=== PATIENT | male | born 1955 | race Caucasian/White ===

== ENCOUNTER 2018-11-24 12:41 | Inpatient (IN) | payer MEDICARE, OTHER ==
--- NOTE | 2018-11-24 13:15 | ED ---
Shortness of Breath - HPI Summary HPI Summary: This patient is a 63 year old male brought in to [facility] by EMS with a cc of SOB accompanied by diffuse upper back pain and diffuse CP. The patient was discharged yesterday from [facility] after he had a cardiac ablation for afib. He has had CP since he was discharged. He rates the pain 2/10 in severity. The patient states when he was going home he was so fatigued that he needed to stop and rest several times as he drove home. Since then he has had severe PICKETT and can barely walk. Last night it was worse as he became anxious. He used his CPAP all night with relief. Hx COPD. When he took his CPAP off this morning he was having severe PICKETT, so much so that he was unable to put his pants on. At this time he contacted EMS. He does deny LE edema. - History of Current Complaint Chief Complaint: EDChestPainROMI Time Seen by Provider: 11/24/18 12:51 Hx Obtained From: Patient Onset/Duration: Lasting Days - 2, Still Present Timing: Constant Current Severity: Moderate Dyspnea At: Exertion Alleviating Factors: Oxygen, Other - rest Associated Signs & Symptoms: Chest Pain Unrelated to Cough - Allergy/Home Medications Allergies/Adverse Reactions: Allergies Allergy/AdvReac Type Severity Reaction Status Date / Time Penicillins Allergy Unknown Verified 11/24/18 12:49 Reaction Details tamsulosin [From Flomax] Allergy URINARY Verified 11/24/18 12:49 TRACT INFECTIONS TETANUS Allergy ?? UNSURE Uncoded 11/24/18 12:49 IF ALLERGIC Home Medications: Home Medications Fluticasone NASAL SPRAY 50MCG* [Flonase NASAL SPRAY 50MCG*] 1 spray BOTH NARES BID 11/24/18 [History Confirmed 11/24/18] Magnesium Oxide [Magnesium] 400 mg PO DAILY 11/24/18 [History Confirmed 11/24/18 ] Metoprolol Succinate XL TAB* [Toprol XL TAB*] 25 mg PO BEDTIME 11/24/18 [ History Confirmed 11/24/18] Pantoprazole TAB * [Protonix TAB*] 40 mg PO QAM 11/24/18 [History Confirmed ] PMH/Surg Hx/FS Hx/Imm Hx Cardiovascular History: Reports: Other Cardiovascular Problems/Disorders - ATRIAL FIBRILLATION Denies: Hx Pacemaker/ICD Respiratory History: Reports: Hx Chronic Obstructive Pulmonary Disease (COPD), Hx Sleep Apnea - NO MACHINE GI History: Reports: Hx Gastroesophageal Reflux Disease - PRN TUMS History: Reports: Hx Kidney Infection - HX OF IN THE PAST, Hx Kidney Stones - HX OF IN THE PAST, Other Problems/Disorders Musculoskeletal History: Reports: Hx Arthritis - KNEES, Hx Tendonitis - ELBOWS Sensory History: Reports: Hx Cataracts, Hx Contacts or Glasses - GLASSES, Hx Hearing Aid - LEFT EAR Opthamlomology History: Reports: Hx Cataracts, Hx Contacts or Glasses - GLASSES Neurological History: Reports: Other Neuro Impairments/Disorders - STATES BALANCE IS A LITTLE OFF Psychiatric History: Reports: Hx Depression - AFTER PASSED - Surgical History Surgery Procedure, Year, and Place: LEFT ARM FOR [id number]. BLADDER -TRANG. EYE- LEFT-[place]- 09/2012 AND 10/2012, Cataracts- both eyes. [id number] Hx Anesthesia Reactions: No Infectious Disease History: No Infectious Disease History: Denies: Traveled Outside the [place] in Last 30 Days - Family History Known Family History: Positive: Hypertension - Social History Alcohol Use: None Substance Use Type: Reports: None Smoking Status (MU): Former Smoker Amount Used/How Often: CIGARS X 5 YEARS Have You Smoked in the Last Year: No Review of Systems Positive: Chest Pain - w/ back pain Positive: Shortness Of Breath Negative: Edema All Other Systems Reviewed And Are Negative: Yes Physical Exam - Summary Physical Exam Summary: Appearance: The patient is well-nourished in no acute distress and in no acute pain. Skin: The skin is warm and dry and skin color reflects adequate perfusion. HEENT: The head is normocephalic and atraumatic. The pupils are equal and reactive. The conjunctivae are clear and without drainage. Nares are patent and without drainage. Mouth reveals moist mucous membranes and the throat is without erythema and exudate. The external ears are intact. The ear canals are patent and without drainage. The tympanic membranes are intact. Neck: The neck is supple with full range of motion and non-tender. There are no carotid bruits. There is no neck vein distension. Respiratory: Chest is non-tender. Lungs are clear to auscultation and breath sounds are symmetrical and equal. Cardiovascular: Heart is regular rate and rhythm. There is no murmur or rub auscultated. There is slight pitting edema, the left is worse than the right Abdomen: The abdomen is soft and non-tender. There are normal bowel sounds heard in all four quadrants and there is no organomegaly palpated. Musculoskeletal: There is no back tenderness noted. Extremities are non-tender with full range of motion. There is good capillary refill. No calf tenderness elicited. Neurological: Patient is alert and oriented to person, place and time. The patient has symmetrical motor strength in all four extremities. Cranial nerves are grossly intact. Deep tendon reflexes are symmetrical and equal in all four extremities. Psychiatric: The patient has an appropriate affect and does not exhibit any anxiety or depression. Triage Information Reviewed: Yes Vital Signs On Initial Exam: Initial Vitals Temp Pulse Resp BP Pulse Ox 99.1 F 62 24 129/77 97 11/24/18 12:43 11/24/18 12:43 11/24/18 12:43 11/24/18 12:43 11/24/18 12:43 Vital Signs Reviewed: Yes Diagnostics - Vital Signs Vital Signs Temp Pulse Resp BP Pulse Ox 11/24/18 12:43 99.1 F 62 24 129/77 97 - Laboratory Result Diagrams: 11/24/18 13:04 11/24/18 13:04 Lab Statement: Any lab studies that have been ordered have been reviewed, and results considered in the medical decision making process. - Radiology CXR Radiology Interpretation Completed By: Radiologist Summary of Radiographic Findings: ELEVATION OF THE RIGHT HEMIDIAPHRAGM SUGGESTIVE OF DIAPHRAGMATIC PARALYSIS. WITH RIGHT GREATER THAN LEFT BIBASILAR ATELECTASIS. Dr. Charles has reviewed this report - CT CTA Chest CT Interpretation Completed By: Radiologist Summary of CT Findings: Right lower lobe atelectasis with no definite evidence of pulmonary embolus. Dr. Charles has reviewed this report. - EKG 1234 Cardiac Rate: NL EKG Rhythm: Sinus Rhythm - at 60 BPM Summary of EKG Findings: Normal sinus rhythm, normal ST, no ectopy, no STEMI Course/Dx - Course Course Of Treatment: Mr. Sethi presented to the emergency department complaining of chest pain which occurred this morning. It is in his lower chest and exacerbated by breathing. He also complains of being short of breath. He is somewhat equivocal but always has some degree of shortness of breath began to feel more short of breath yesterday when he was in the hospital for an ablation for atrial fibrillation. Additionally 3 weeks ago he had a left inguinal hernia repair. On arrival to the emergency department he was tachypnea And if taken off oxygen his pulse ox would drop to the low 90s at rest. He had good air entry and no wheezes although he has a history of COPD and uses an inhaler at home. Because of the concern for possible PE labs were obtained and when his creatinine allowed it, a CTA was obtained. This was negative for PE. At that point he was treated for presumed COPD exacerbation and did say he felt better, however when we attempted to ambulate him a second time he still dropped his pulse ox. The hospitalist were asked to evaluate him for admission and further workup. - Diagnoses Provider Diagnoses: Chest pain, Respiratory insufficiency - Physician Notifications Discussed Care of Patient With: Kendrick Ba Time Discussed With Above Provider: 18:15 Instructed by Provider To: Other - He saw the patient at 1831 and he is concerned that his phrenic nerve may have been damaged during the ablation and he suggested getting an ABG - Critical Care Time Critical Care Time: 30-74 min Discharge - Sign-Out/Discharge Documenting (check all that apply): Patient Departure - admitted - Discharge Plan Condition: Fair Disposition: ADMITTED TO [facility] Referrals: Attila SIMON,Enoc Ennis [Primary Care Provider] - - Billing Disposition and Condition Condition: FAIR Disposition: Admitted to [facility] - Attestation Statements Document Initiated by Solo: Yes Documenting Scribe: Malvin Caballero Provider For Whom Solo is Documenting (Include Credential): Porfirio Charles MD Scribe Attestation: Malvin Warner , scribed for Porfirio Charles MD on 11/24/18 at 1907. Scribe Documentation Reviewed: Yes Provider Attestation: The documentation as recorded by the Malvin high accurately reflects the service I personally performed and the decisions made by , Porfirio Charles MD Status of Scribe Document: Viewed
[2018-11-24 13:22] LABS: ABS Basophils 0 10^3/ul (0-0.2); ABS Eosinophils 0 10^3/ul (0-0.6); ABS Lymphocytes 1.1 10^3/ul (1.0-4.8); ABS Monocytes 1.1 10^3/ul (0-0.8); ABS Neutrophils 7.5 10^3/ul (1.5-7.7); ABS Nucleated RBC 0 10^3/ul; Eosinophil % 0.2 %; Hematocrit 39 % (42-52); Hemoglobin 13.2 g/dl (14.0-18.0); Lymphocyte % 11.5 %; Mean Corpuscular HGB Conc 34 g/dl (31-36); Mean Corpuscular Hemoglobin 31 pg (27-31); Mean Corpuscular Volume 92 fL (80-94); Mean Platelet Volume 9.2 fL (7.4-10.4); Nucleated Red Blood Cells % 0; Platelet Count 159 10^3/ul (150-450); Red Blood Count 4.24 10^6/ul (4.00-5.40); Red Cell Distribution Width 14 % (10.5-15); White Blood Count 9.8 10^3/ul (3.5-10.8)
[2018-11-24 13:40] LABS: Albumin 3.3 g/dL (3.2-5.2); Albumin/Globulin Ratio 1.3 (1-3); BUN/Creatinine Ratio 27.3 (8-20); C Reactive Protein 24.76 mg/L (<8.01); Calcium 8.9 mg/dL (8.6-10.3); EGFR African American 122.7 (>60); EGFR Non-African American 101.4 (>60); Globulin 2.5 g/dL (2-4); Total Bilirubin 1.2 mg/dL (0.2-1.0); Total Protein 5.8 g/dL (6.4-8.9)
[2018-11-24 13:44] LABS: Troponin I 1.92 ng/mL (<0.04)
[2018-11-24] MEDS ORDERED: Iohexol 350* (CONTRAST) 500 ML MDV IV ONE (13:51)
[2018-11-24] MEDS ORDERED: Albuterol/Ipratropium NEB.SOL* Albuterol 2.5 MG/Ipratropium 0.5 MG 3 ML INH ONE (16:04)
[2018-11-24] MEDS ORDERED: methylPREDNISolone 125 MG* 2 ML VIAL IV ONE (16:05)
[2018-11-24 17:17] LABS: Influenza A Molecular NEGATIVE (Negative); Influenza B Molecular NEGATIVE (Negative)
--- NOTE | 2018-11-24 21:18 | HP ---
ADMITTING HISTORY AND PHYSICAL: DATE OF ADMISSION: 11/24/18 CHIEF COMPLAINT: Dyspnea on exertion. HISTORY OF PRESENT ILLNESS: The patient is a 63-year-old gentleman with a history of COPD; JESSICA, on CPAP and atrial fibrillation status post recent thermal ablation procedure at [facility] 2 days prior to admission who mentioned that he has been having abdominal and/or chest pain about 2/10 in severity and when he was about to get discharged home, he complained of some chest pain and shortness of breath, but was discharged nonetheless, although the details of the workup prior to discharge is unavailable to me at this time. He mentions that his symptoms progressively got worse and his dyspnea on exertion further worsened leading to his presentation in the ED, at which point he was suspected as having COPD exacerbation and had been given Solu-Medrol and he was also ruled out for PE. A chest x-ray as well as a CT angio reveals right lower lobe atelectasis and an elevation of the left hemidiaphragm that could be consistent with diaphragmatic paralysis. Please see discussion below. PAST MEDICAL AND SURGICAL HISTORY: 1. COPD. 2. Atrial fibrillation. 3. Kidney stone status post lithotripsy about 4 to 5 years ago, stable. 4. JESSICA, on CPAP at 10 cm water. 5. Bilateral inguinal hernia repair. 6. Status post bladder diverticular resection. 7. Status post TURP. 8. He has pins and plates on his left arm due to a previous earlier injury. MEDICATIONS: His home medications are: 1. Cholecalciferol. 2. Ascorbic acid. 3. Magnesium oxide. 4. Rivaroxaban. 5. Propafenone. 6. Pantoprazole. 7. Metoprolol succinate. 8. Fluticasone nasal spray. ALLERGIES: To PENICILLIN, TETANUS, and FLOMAX. FAMILY HISTORY: His father had kidney cancer and his sister had some unknown type of cancer. SOCIAL HISTORY: He mentions that he has COPD despite smoking tobacco only for 5 to 6 years. He quit this 40 years ago, but he does admit that he used to work in the [employer] and had been exposed to dust and possibly even asbestos. He follows at [facility] by either Ms. Anamika Burton or Celeste Jordan at: [phone] REVIEW OF SYSTEMS: Shortness of breath and dyspnea on exertion as discussed. Abdominal pain on the upper portion of the abdomen and lower portion of the ribs that gets worse on breathing and on exertion. Other than this, the 14- point review of systems is otherwise unremarkable. PHYSICAL EXAMINATION GENERAL APPEARANCE: The patient is awake, alert, and oriented, not in acute distress. VITAL SIGNS: Review of the most recent vital signs of records with blood pressure of 106/63, 81 beats per minute heart rate, 37 per minute respiratory rate from 24 and 28, 92% saturation at room air. HEENT: Normocephalic, atraumatic. PERRLA. Extraocular muscles intact. Negative for icterus. Moist oral mucosa. Negative throat erythema. NECK: Soft, supple with no cervical lymphadenopathy. No JVD. CHEST: Clear to auscultation bilaterally. Good air entry on the left lung field and poor air entry at the right lung base. HEART: S1, S2 within normal limits. Regular rate and rhythm. No murmurs, rubs , or gallops. ABDOMEN: Soft, nondistended, nontender. Normoactive bowel sounds x4 quadrants. EXTREMITIES: No cyanosis, clubbing, or edema. PSYCHIATRIC: No active psychosis, depression, suicidal nor homicidal ideation. SKIN: Warm to touch. LABORATORY DATA/DIAGNOSTIC STUDIES: Most recent and pertinent laboratories are as follows: CBC shows normal WBC and platelet counts, mildly low H and H of 13.2 and 39, respectively. Normal sodium and potassium, BUN and creatinine as well as LFTs. Troponins mildly elevated at 1.92, then subsequently became 1.37. Influenza screen is negative. Chest x-ray shows hemidiaphragm and atelectasis on the right side, same thing with CT angio that has ruled out PE. EKG shows no concerning ST segment change. 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 1. Shortness of breath, likely due to hemiparesis of the diaphragm. I have spoken with Dr. Stephenson and she agrees with the current plan of frequent nebulizations for now and we will place the patient on BiPAP on a p.r.n. basis if he continues to desaturate and if ABG is suggestive of decreased ventilation. Currently, the patient is not hypoxic on O2 at rest, but he does desaturate on ambulation.We will touch base with his behavioral consultant in AM to determine if previous CXR do not show elevated right hemidiaphragm. 2. Chronic obstructive pulmonary disease. At this time, I feel that the patient does not have any chronic obstructive pulmonary disease exacerbation, but certainly his baseline chronic obstructive pulmonary disease could co- interact with the above issue to lead to shortness of breath even at rest. At this time, we will continue with metoprolol, rivaroxaban, and propafenone. I will not continue high-dose Solu- Medrol given I do not believe he is in chronic obstructive pulmonary disease exacerbation at this time. 3. Atrial fibrillation. Please see above discussion. 4. Gastroesophageal reflux disease. Continue pantoprazole. 5. Obstructive sleep apnea. We will place the patient on CPAP with p.r.n. BiPAP that has been signed out to night coverage to Dr. Cruz to watch out during the night. 6. DVT prophylaxis. The patient is on full anticoagulation, on rivaroxaban. 7. Disposition for PT eval. [id number]/CPS #: [id number] MTDD
[2018-11-24] MEDS: Albuterol/Ipratropium NEB.SOL* Albuterol 2.5 MG/Ipratropium 0.5 MG 3 ML INH SCH ×2 (23:29→23:36)
[2018-11-24] MEDS: Fluticasone NASAL SPRAY 50MCG* 16 gm SPRAY BTL BOTH NARES SCH (23:30)
[2018-11-24] MEDS: Metoprolol Succinate XL TAB* 25 MG PO SCH (23:31)
[2018-11-24] MEDS: Cholecalciferol TAB* 1000 UNITS PO SCH (23:31)
[2018-11-24] MEDS: Rivaroxaban TAB(*) 20 MG TAB PO SCH (23:31)
[2018-11-24] MEDS: PROPAFENONE 325 MG PO SCH (23:31)
[2018-11-25] MEDS: Albuterol/Ipratropium NEB.SOL* Albuterol 2.5 MG/Ipratropium 0.5 MG 3 ML INH SCH ×2 (03:33→07:59)
[2018-11-25 06:01] LABS: ABS Basophils 0 10^3/ul (0-0.2); ABS Eosinophils 0 10^3/ul (0-0.6); ABS Lymphocytes 0.6 10^3/ul (1.0-4.8); ABS Monocytes 0.4 10^3/ul (0-0.8); ABS Neutrophils 7.6 10^3/ul (1.5-7.7); ABS Nucleated RBC 0 10^3/ul; Eosinophil % 0 %; Hematocrit 38 % (42-52); Hemoglobin 12.9 g/dl (14.0-18.0); Lymphocyte % 7.2 %; Mean Corpuscular HGB Conc 34 g/dl (31-36); Mean Corpuscular Hemoglobin 31 pg (27-31); Mean Corpuscular Volume 90 fL (80-94); Mean Platelet Volume 9.5 fL (7.4-10.4); Nucleated Red Blood Cells % 0; Platelet Count 132 10^3/ul (150-450); Red Blood Count 4.18 10^6/ul (4.00-5.40); Red Cell Distribution Width 14 % (10.5-15); White Blood Count 8.6 10^3/ul (3.5-10.8)
[2018-11-25 06:19] LABS: Albumin 3.2 g/dL (3.2-5.2); Albumin/Globulin Ratio 1.3 (1-3); BUN/Creatinine Ratio 30.6 (8-20); Calcium 8.7 mg/dL (8.6-10.3); EGFR African American 157.5 (>60); EGFR Non-African American 130.2 (>60); Globulin 2.5 g/dL (2-4); Magnesium 2.1 mg/dL (1.9-2.7); Phosphorus 2.5 mg/dL (2.5-5.0); Potassium 4.2 mmol/L (3.5-5.0); Total Bilirubin 0.8 mg/dL (0.2-1.0); Total Protein 5.7 g/dL (6.4-8.9)
[2018-11-25] MEDS: PROPAFENONE 325 MG PO SCH ×2 (09:24→22:37)
[2018-11-25] MEDS: Pantoprazole TAB * 40 MG TAB PO SCH (09:24)
[2018-11-25] MEDS: Magnesium Oxide TAB* 400 MG PO SCH (09:24)
[2018-11-25] MEDS: Cholecalciferol TAB* 1000 UNITS PO SCH ×2 (09:24→22:37)
[2018-11-25] MEDS: Fluticasone NASAL SPRAY 50MCG* 16 gm SPRAY BTL BOTH NARES SCH ×2 (09:25→22:36)
[2018-11-25] MEDS ORDERED: Albuterol/Ipratropium NEB.SOL* Albuterol 2.5 MG/Ipratropium 0.5 MG 3 ML INH PRN (09:58)
[2018-11-25] MEDS: Rivaroxaban TAB(*) 20 MG TAB PO SCH (17:27)
--- NOTE | 2018-11-25 18:17 | PN ---
Subjective Date of Service: 11/25/18 Interval History: Pt seen and examined. Meds and labs reviewed. CC: Feels better, still have some PICKETT ROS: Denied CROWDER/dizziness, F/C, N/V, CP, SOB, increased cough, sputum production , abd pain, diarrhea, constipation, dysuria, myalgias, arthralgias, throat pain , and new skin lesions. The rest of the 14 point ROS are unremarkable. PHYSICAL EXAM: GEN APPEARANCE: Awake, not in acute distress HEENT: NC/AT, PERRLA, moist oral mucosa, (-) throat erythema NECK: Soft, supple, (-) cervical LAD, (-)JVD HEART: S1S2 WNL, RRR, No MRG CHEST: CTA, BL, poor air entry on right base, No W/R/R ABD: Soft, ND/NT, NABS 4x Q EXT: No C/C/E SKIN: Warm to touch PSYCH: No active psychosis, hallucinations, depression, SI/HI Objective Active Medications: Albuterol/Ipratropium (Duoneb (Albuterol 2.5 Mg/Ipratropium 0.5 Mg)) 1 neb INH Q4H PRN PRN Reason: SOB/WHEEZING Cholecalciferol (Vitamin D Tab*) 1,000 units PO BID [facility] Last Admin: 11/25/18 09:24 Dose: 1,000 units Fluticasone Propionate (Flonase Nasal [place] 50mcg*) 1 spray BOTH NARES BID [facility] Last Admin: 11/25/18 09:25 Dose: 1 spray Guaifenesin (Mucinex*) 600 mg PO BID [facility] Magnesium Oxide (Magox 400 Tab*) 400 mg PO DAILY [facility] Last Admin: 11/25/18 09:24 Dose: 400 mg Metoprolol Succinate (Toprol Xl Tab*) 25 mg PO BEDTIME [facility] Last Admin: 11/24/18 23:31 Dose: 25 mg Pantoprazole Sodium (Protonix Tab*) 40 mg PO QAM [facility] Last Admin: 11/25/18 09:24 Dose: 40 mg Propafenone HCl (Rythmol Er (Nf)) 325 mg PO BID [facility]; Protocol Last Admin: 11/25/18 09:24 Dose: 325 mg Rivaroxaban (Xarelto(*)) 20 mg PO QPM [facility] Last Admin: 11/25/18 17:27 Dose: 20 mg Vital Signs - 8 hr 11/25/18 11/25/18 12:20 15:41 Temperature 98.5 F 97.2 F Pulse Rate 61 74 Respiratory 20 18 Rate Blood Pressure 99/59 121/79 (mmHg) O2 Sat by Pulse 96 Oximetry Oxygen Devices in Use Now: None Result Diagrams: 11/25/18 05:49 11/25/18 05:49 Microbiology and Other Data: Microbiology 11/24/18 12:47 Aerobic Blood Culture - Preliminary Blood Venous No Growth Day 1 Anaerobic Blood Culture - Preliminary No Growth Day 1 11/24/18 12:38 Aerobic Blood Culture - Preliminary Blood Venous No Growth Day 1 Anaerobic Blood Culture - Preliminary No Growth Day 1 11/24/18 16:47 Influenza Types A,B Antigen - Final Nasal Specimen received for Influenza A/B Molecular testing Assess/Plan/Problems-Billing Assessment: - Patient Problems (1) PICKETT (dyspnea on exertion) Current Visit: Yes Status: Acute Code(s): R06.09 - OTHER FORMS OF DYSPNEA SNOMED Code(s): 63801638 Comment: -Likely multifactorial due to worsening atelectasis due to sedation for ablation in the setting of COPD w/right diaphragmatic paralysis -I have spoken w/Dr. Celeste Jordan of [facility] and unfortunately, her computer system was down and unable to confirm if right diaphragmatic elevation is new or old. Fortunately, upon review, Dr. Stephenson has compared Urogram CT back in 2014, where this elevation was also found and hence likely old and not due to complication of recent cardiac ablation -Continue Nebulization as ordered -Ordered Sniff test w/c was confirmatory of known/old right diaphragmatic paralysis (2) COPD (chronic obstructive pulmonary disease) Current Visit: Yes Status: Acute Code(s): J44.9 - CHRONIC OBSTRUCTIVE PULMONARY DISEASE, UNSPECIFIED SNOMED Code(s): 22061588 Comment: -Not in acute exacerbation -Continue current regimen (3) A-fib Current Visit: Yes Status: Acute Code(s): I48.91 - UNSPECIFIED ATRIAL FIBRILLATION SNOMED Code(s): 25619742 Comment: -Continue Metoprolol, Rivaroxaban, and Propafenone (4) JESSICA (obstructive sleep apnea) Current Visit: Yes Status: Acute Code(s): G47.33 - OBSTRUCTIVE SLEEP APNEA ( ADULT) (PEDIATRIC) SNOMED Code(s): 96062428 Comment: -Continue CPAP qHS (5) DVT prophylaxis Current Visit: Yes Status: Acute Code(s): YLJ1851 - SNOMED Code(s): 927262953 Comment: -Continue Rivaroxaban Status and Disposition: -For ambulatory sats in AM -As above
--- NOTE | 2018-11-25 19:29 | CONS ---
PULMONARY CONSULTATION REPORT: DATE OF CONSULT: 11/25/18. CONSULTATION REQUESTED BY: Dr. Ba. REASON FOR CONSULT: Evaluation of shortness of breath, abnormal CT chest. HISTORY OF PRESENT ILLNESS: The patient is a 63-year-old obese male with history of COPD; obstructive sleep apnea, on CPAP; atrial fibrillation; recent ablation at [facility]. The patient presents for evaluation of worsening shortness of breath. The patient has chronic shortness of breath that has significantly worsened after recent ablation procedure. The patient reports that he had anesthesia during the procedure and did not have the CPAP on post. The patient has chronic cough with sputum production, has increased cough since the procedure. The patient was admitted for management of acute COPD exacerbation. The patient reports history of smoking, only smoked pipe in the past and quit 40 years ago. He; however, was exposed to secondhand smoke with his smoking. 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 Further evaluation in the emergency room included chest x- ray and CT scan of the chest. Chest x-ray and CTA were personally reviewed by me. Chest x-ray showed elevation of right hemidiaphragm and with basal atelectasis. CT of the chest did not reveal any filling defects in pulmonary arteries. Evidence of right lower lobe atelectasis was seen. No significant mediastinal or hilar adenopathy noted. No abnormalities, otherwise in the lungs. I have reviewed prior CT urogram, which did show elevated right hemidiaphragm; however, he did not have the significant atelectasis that is seen on current CT. I did not appreciate any significant emphysematous changes on the CTA. The patient reports slight improvement in shortness of breath, still gets winded with walking, which as per his significant other in the room is not new for him. He did not have any white count. Hemoglobin was slightly low. He attributes his shortness of breath to his heart problems. His troponin was elevated upon admission, which is slowly trending down. His BNP was also significantly elevated. He was at this point started on bronchodilators. He also has a history of obstructive sleep apnea and uses CPAP at home. PAST MEDICAL HISTORY: 1. COPD. 2. Atrial fibrillation. 3. Kidney stone, status post lithotripsy. 4. Obstructive sleep apnea, on CPAP of 10. 5. Bilateral inguinal hernia repair. 6. Status post bladder diverticula resection. 7. Status post TURP. 8. History of back issues and sciatica. 9. Pins and plates in left arm after previous injury. 10. Also head trauma after he fell while working on the roof. MEDICATIONS: 1. Cholecalciferol. 2. Ascorbic acid. 3. Magnesium oxide. 4. Rivaroxaban. 5. Propafenone. 6. Pantoprazole. 7. Metoprolol. 8. Fluticasone. ALLERGIES: PENICILLIN, TETANUS, FLOMAX. FAMILY HISTORY: Father had kidney cancer. Sister had unknown type of cancer. SOCIAL HISTORY: COPD as per the patient; however, he did not smoke significantly. He sees Pulmonary in [place]. REVIEW OF SYSTEMS: All 14 systems reviewed as per [facility]. PHYSICAL EXAM: The patient is in bed, in no apparent distress. Vital Signs: Temperature 98.5, pulse 66 beats per minute, respiratory rate 14 per minute, O2 sat 90% to 92% on room air, blood pressure 113/78. HEENT: Pupils equal, reactive to light. Mucous membranes moist. Chest: Good air entry bilaterally. No wheeze on auscultation. Diminished air entry on the right lung. Cardiovascular: S1, S2 present and regular. Abdomen: Obese, distended. Bowel sounds present. Extremities: Normal range of motion. No edema. Skin: No rash. Neuro: No focal deficits. DIAGNOSTIC STUDIES/LAB DATA: WBC count 8.6, hemoglobin 12.9, hematocrit 38, platelet count 132,000. Sodium 138, potassium 4.2, chloride 107, bicarb 26, BUN 19, creatinine 0.62. Troponin is trending down. Serology: Influenza A and B negative. CTA and chest x-ray as described above in HPI. IMPRESSION AND RECOMMENDATIONS: 63-year-old obese male without significant smoking history, with history of right hemidiaphragm paresis and elevated right hemidiaphragm and ongoing issues with atrial fibrillation, admitted after ablation with worsening shortness of breath. Worsening shortness of breath likely secondary to right lower lobe atelectasis in the setting of a recent procedure that required sedation and also not being on CPAP in the setting of underlying elevated right hemidiaphragm. This might have resulted in acute worsening of his shortness of breath. I do not think his elevated diaphragm issue is any acute and I do not think it is a result of ablation procedure. Definitely, he did have elevated diaphragm on the prior CT I believe from [address] urogram. Recommended incentive spirometer. The patient reports having distention and he is not able to move his bowels, which might also be exacerbating his situation. He has obstructive sleep apnea and is on BiPAP. Given that diaphragmatic paresis is not acute, he does not need an acute management at this time. I encouraged the patient to take nice deep breath and use more positive pressure when he can. Recommend using nebulizers as needed. I do not think he has acute COPD exacerbation at this time. He is having thick mucus and having inability to cough the mucus out , so I am going to order some Mucinex to help with movement of his secretions. He was also encouraged to lose weight, as this might be exacerbating the diaphragmatic weakness. He also has history of frequent hernias. Thank you for allowing me to participate in the care of your patient. Will follow up with you. [id number]/[facility] #: [id number] [place]
[2018-11-25] MEDS: guaiFENesin ER TAB 600 MG PO SCH (22:37)
[2018-11-25] MEDS: Metoprolol Succinate XL TAB* 25 MG PO SCH (22:37)
[2018-11-25] MEDS ORDERED: Senna TAB PO PRN (22:44)
[2018-11-25] MEDS: Docusate CAP* 100 MG PO PRN (23:32)
[2018-11-26 05:56] LABS: ABS Basophils 0 10^3/ul (0-0.2); ABS Eosinophils 0.1 10^3/ul (0-0.6); ABS Lymphocytes 1.8 10^3/ul (1.0-4.8); ABS Monocytes 0.8 10^3/ul (0-0.8); ABS Neutrophils 7.7 10^3/ul (1.5-7.7); ABS Nucleated RBC 0 10^3/ul; Hematocrit 37 % (42-52); Hemoglobin 12.9 g/dl (14.0-18.0); Mean Corpuscular HGB Conc 35 g/dl (31-36); Mean Corpuscular Hemoglobin 31 pg (27-31); Mean Corpuscular Volume 90 fL (80-94); Mean Platelet Volume 9.1 fL (7.4-10.4); Nucleated Red Blood Cells % 0; Platelet Count 171 10^3/ul (150-450); Red Cell Distribution Width 14 % (10.5-15); White Blood Count 10.4 10^3/ul (3.5-10.8)
[2018-11-26 06:20] LABS: BUN/Creatinine Ratio 32.9 (8-20); Calcium 8.6 mg/dL (8.6-10.3); EGFR African American 136.9 (>60); EGFR Non-African American 113.2 (>60); Potassium 3.8 mmol/L (3.5-5.0)
[2018-11-26] MEDS: PROPAFENONE 325 MG PO SCH (08:25)
[2018-11-26] MEDS: Magnesium Oxide TAB* 400 MG PO SCH (08:26)
[2018-11-26] MEDS: Fluticasone NASAL SPRAY 50MCG* 16 gm SPRAY BTL BOTH NARES SCH (08:26)
[2018-11-26] MEDS: Cholecalciferol TAB* 1000 UNITS PO SCH (08:26)
[2018-11-26] MEDS: Pantoprazole TAB * 40 MG TAB PO SCH (08:26)
[2018-11-26] MEDS: guaiFENesin ER TAB 600 MG PO SCH (08:26)
[2018-11-26] MEDS: Docusate CAP* 100 MG PO PRN (11:10)
[2018-11-26 11:19] VITALS: BP 101/72
--- NOTE | 2018-11-27 00:17 | DS ---
CC: Dr. oNrma Cruz; Dr. Porfirio Charles; Dr. Anay Stephenson; Enoc Aiken [facility]- C; Dr. 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 DISCHARGE MEDICATIONS: As follows: 1. DuoNebs 1 nebulization inhalation q.4 hours p.r.n. 2. Cholecalciferol 1000 units p.o. b.i.d. 3. Fluticasone 1 spray to both nares b.i.d. 4. Guaifenesin 600 mg p.o. b.i.d. 5. Magnesium oxide 400 mg p.o. daily. 6. Metoprolol succinate 25 mg p.o. q.h.s. 7. Pantoprazole 40 mg p.o. q.a.m. 8. Propafenone 325 mg p.o. b.i.d. 9. Rivaroxaban 20 mg p.o. q.p.m. 10. Ascorbic acid 500 mg p.o. daily. 11. MiraLAX 17 g p.o. daily p.r.n. 12. Senna Plus 2 tabs p.o. daily. HISTORY OF PRESENT ILLNESS/HOSPITAL COURSE: The patient is a 63-year-old gentleman with history of COPD, JESSICA, on CPAP, and atrial fibrillation , status post recent thermal ablation procedure at [facility] 2 days prior to admission, who had mentioned that he had been having some abdominal and/or chest pain, about 2/10 in severity, and was about to get discharged home when he complained of some chest pain and shortness of breath, but mentioned that they discharged him nonetheless, although the details of this workup is unavailable to us at this time. He mentions that his symptoms progressively got worse and his dyspnea on exertion further worsened, leading to his presentation in the ED, at which point he was suspected to have COPD exacerbation and had been given Solu- Medrol and subsequently has also been ruled out for PE with a CT angio in the ED. However, upon reevaluation, the patient was found to have good air entry on the left, with poor air entry on the base, and upon review of his chest x-ray, it was found that he had an elevated right hemidiaphragm. Since previous imaging studies of the chest were unavailable for comparison at that time, his preliminary diagnosis on admission was then subsequently changed to shortness of breath likely due to an acute right diaphragmatic paralysis. I had spoken the following day with his audio visual facilities engineer who follows him as an outpatient, who also mentions that he had performed the PFT on him and diagnosed him with COPD, which is Dr. Kaur of [place]. Unfortunately, Dr. Kaur was unable to provide previous imaging studies of his chest given their system was down at the time of my call. However, I did consult Dr. Stephenson who has reviewed previous imaging studies done in our facility and although we do not have specific lung image, he did have CT urogram on 08/21/15, which also showed elevated right hemiparesis, thus suggesting that the above finding was old and unlikely induced by his recent cardiac ablation as could also be seen. 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 Therefore, Dr. Stephenson had advised the patient to increase his positive pressures by frequent incentive spirometry as well as to improve his bowel movements given he mentions that he does have some intermittent constipation. He had been advised to follow up and/or call his PCP within 3 days post discharge, to follow up with Dr. Kaur within 1 week post discharge and to follow Dr. Stephenson's advice. He was advised to take MiraLAX daily as needed, to have at least one good bowel movement per day, and to use his incentive spirometry every hour and/or as frequently as tolerated. If his symptoms resume or he develops new ones or feel unwell for any reason, he was advised to call his PCP first. If his PCP cannot entertain him due to scheduling issues alone, he was advised to call [facility] if the issue is considered nonemergent, and he was advised to call my office regarding any questions or concerns or further clarifications regarding his discharge plans and/or prescriptions and to take his medications as prescribed. REVIEW OF SYSTEMS: The patient still complains of some dyspnea on exertion, but definitely much improved from previous. He denied any headache, dizziness, fevers, chills, nausea, vomiting, chest pain, abdominal pain, diarrhea, constipation, pain and/or increased frequency on urination, myalgias or arthralgias, throat pain, or new skin lesions. The rest of the 14-point review of systems is otherwise unremarkable. PHYSICAL EXAMINATION: Shows most recent vital signs of record with blood pressure of 101/72, 97.6 degrees Fahrenheit, 57 beats per minute heart rate, 24 per minute respiratory rate from 26, saturating at 97% on room air and ambulatory sats done earlier this morning shows 89% on room air. General Appearance: The patient is awake, alert, and oriented x3, not in acute distress. HEENT: Normocephalic, atraumatic. PERRLA, extraocular muscles intact. Negative for icterus. Moist oral mucosa. Negative throat erythema. Neck is soft, supple, with no cervical lymphadenopathy. No JVD. Heart: S1 and S2 within normal limits. Regular rate and rhythm. No murmurs, rubs or gallops. Chest: Clear to auscultation bilaterally. Poor air entry on right base and good air entry all throughout left base, although poor air entry in the right base has somewhat improved on presentation. No wheezes, rales or rhonchi. Abdomen is soft, nondistended, nontender. Normoactive bowel sounds x4 quadrants. Extremities: No cyanosis, clubbing or edema. TIME SPENT: The total time spent evaluating the patient, reviewing pertinent data, and appropriate documentation is 65 minutes. [id number]/[facility] #: [id number] [facility]
== END 2018-11-26 15:05 | disposition home or self-care (01) | DRG 143 ==
LOC: ED 12:41 → MEDTELE 19:07
PROVIDERS: ADMIT Internal Medicine; ATTEND Student in an Organized Health Care Education/Training Program
PROC: 5A09357 Assistance with Respiratory Ventilation, Less than 24 Consecutive Hours, Continuous Positive Airway Pressure (ICD-10-PCS; principal; 2018-11-24)
DX: J98.6 Disorders of diaphragm (principal); J98.11 Atelectasis; J44.9 Chronic obstructive pulmonary disease, unspecified; F32.9 Major depressive disorder, single episode, unspecified; M17.0 Bilateral primary osteoarthritis of knee; K21.9 Gastro-esophageal reflux disease without esophagitis; I48.91 Unspecified atrial fibrillation; G47.33 Obstructive sleep apnea (adult) (pediatric); H91.92 Unspecified hearing loss, left ear; M54.30 Sciatica, unspecified side; K59.00 Constipation, unspecified; Z97.4 Presence of external hearing-aid; Z82.49 Family history of ischemic heart disease and other diseases of the circulatory system; Z98.42 Cataract extraction status, left eye; Z98.41 Cataract extraction status, right eye; Z88.0 Allergy status to penicillin; Z88.7 Allergy status to serum and vaccine; Z88.8 Allergy status to other drugs, medicaments and biological substances; Z87.442 Personal history of urinary calculi; Z87.891 Personal history of nicotine dependence; Z84.1 Family history of disorders of kidney and ureter
CPT/HCPCS: 36415; 36600; 71045; 71275; 76000; 80048; 80053; 82803; 83605; 83735; 83880; 84100; 84484; 85025; 86140; 87040; 93005; 94640; 94660; 99284; A9270-GY; G8978-GP-CH; G8979-GP-CH; G8980-GP-CH; J2930; Q9967